=== PATIENT | male | born 1965 | race Two or more races ===

== ENCOUNTER 2016-11-15 06:09 | Day surgery (SDC) | payer SELFPAY ==
[~2016-11-15] VITALS: Ht 177.8 cm; Wt 125.2 kg
--- NOTE | 2016-11-26 20:55 | OR ---
ADMIT: 11/15/2016 RM/LOC: [facility] MR#: [id number] [place], [place] [address] JAYME FELDEROLFO [address] [place] [id number] Operative/Delivery Room Report SEX: M AGE: 51 : 1965 SURGERY DATE: 11/15/2016 SURGEON: Ishaan Casanova MD PROCEDURE: EGD with duodenal, antral, distal esophageal biopsies and gastric polypectomy as well as complete colonoscopy. PREOPERATIVE DIAGNOSES: 1. Reflux. 2. Abdominal pain. 3. Screening colonoscopy. POSTOPERATIVE DIAGNOSES: 1. Grade 2 reflux esophagitis. 2. Antral gastritis. 3. Moderate hiatal hernia. 4. Gastric polyp. 5. Prominent ileocecal valve. 6. Occasional left-sided diverticular disease. 7. Obstructive sleep apnea. COMPLICATION: None immediate. INDICATION FOR PROCEDURE: He had a longstanding history of persistent abdominal pain and reflux, unrelieved with various medicines, and he was due for a screening colonoscopy. Therefore, we are proceeding with EGD and colonoscopy. DESCRIPTION OF PROCEDURE: After the patient was informed of the risks, benefits, and alternatives of the procedure, informed consent was obtained. He was taken back to GI lab and placed in left lateral decubitus position. Sedation was provided by Charlie Fraser MD. Once appropriately sedated, the gastroscope was advanced under direct visualization to the esophagus without difficulty. Image 1 of 12 does reveal the GE junction. There was grade 2 reflux changes here. The scope was advanced into the stomach. There was erythematous change of the gastric mucosa consistent with antral gastritis. Image 2 of 12 does reveal the pylorus which was cannulated revealing a normal duodenal bulb as revealed in image 3 of 12, and duodenal biopsy was obtained. Scope was moved back to the antrum. Multiple biopsies were taken, was retroflexed. Normal-appearing gastric cardia other than the moderate hiatal hernia as seen in the image 4 of 12. There was a gastric polyp which was biopsied. The scope was straightened and moved back to the area of the distal esophagus. We did do GE junction biopsies. The EGD was terminated. He had also been consented for a colonoscopy. The patient was rotated. Sedation was continued to be provided by Charlie Fraser MD. Rectal exam revealed good sphincter tone without palpable masses or lesion. Prostate was midline without nodularity or asymmetry. The colonoscope was passed in the cecum without difficulty. Positional maneuvers and gentle abdominal pressure were required secondary to tortuous colon as well as body habitus. Images 6 and 7 ADMIT: 11/15/2016 RM/LOC: [facility] MR#: [id number] [id number] [facility] [address] [place] [address] Operative/Delivery Room Report SEX: M AGE: 51 : 1965 of 12 do reveal the cecal area confirmed with ballotment and usual landmarks. There was a rather prominent ileocecal valve seen in the images 5 and 8 of 12[address] I had Dr[address] Branch come in, we both examined this together, felt like this was a benign normal valve, thus we both agreed to not biopsy this. Scope was then slowly withdrawn with visualization of the colonic mucosa. Prep was adequate there. No other abnormalities noted except for occasional diverticular disease as seen in the image 9 of 12. Scope was retroflexed revealing a normal appearing rectal anal junction as revealed in the images 10 and 11 of 12. Image 12 of 12 is the rectum itself. The scope was straightened and procedure was terminated, tolerated without any immediate complications, and was transferred to recovery room in stable condition. PLAN: He will follow up with Dr. Dominguez Casanova as needed. Follow up with me in one week to go over biopsy results. We will recommend a sleep study for possible sleep apnea. Ishaan Casanova MD/ wilmer JOB #: [id number] CC: Ishaan Casanova, Attending Physician Dominguez Casanova, Family Physician Dominguez Casanova MD
== END 2016-11-15 13:25 | disposition home or self-care (01) ==
LOC: SSS 06:09
PROC: 0DJD8ZZ Inspection of Lower Intestinal Tract, Via Natural or Artificial Opening Endoscopic (ICD-10-PCS; principal; 2016-11-15)
PROC: 0DB68ZX Excision of Stomach, Via Natural or Artificial Opening Endoscopic, Diagnostic (ICD-10-PCS; principal; 2016-11-15)
PROC: 0DB98ZX Excision of Duodenum, Via Natural or Artificial Opening Endoscopic, Diagnostic (ICD-10-PCS; principal; 2016-11-15)
PROC: 0DB48ZX Excision of Esophagogastric Junction, Via Natural or Artificial Opening Endoscopic, Diagnostic (ICD-10-PCS; principal; 2016-11-15)
DX: K29.50 Unspecified chronic gastritis without bleeding (principal); K31.7 Polyp of stomach and duodenum; K21.0 Gastro-esophageal reflux disease with esophagitis; K44.9 Diaphragmatic hernia without obstruction or gangrene; G47.33 Obstructive sleep apnea (adult) (pediatric); K57.30 Diverticulosis of large intestine without perforation or abscess without bleeding; I10 Essential (primary) hypertension; Z98.890 Other specified postprocedural states; Z79.899 Other long term (current) drug therapy; Z79.82 Long term (current) use of aspirin